=== PATIENT | female | born 1990 | race Caucasian/White ===

== ENCOUNTER 2022-09-02 19:01 | Outpatient (CLI) | payer BC, SELFPAY ==
--- NOTE | 2022-09-02 19:00 | DI.RAD_ITS ---
Exam(s) XR KNEE RT 4V AP,LAT,COLBY,PAT EXAM: XR KNEE RT 4V AP,LAT,COLBY,PAT CLINICAL HISTORY: evaluate pathology ? patella fx. TECHNIQUE: 2D digital imaging was performed of the right knee. Four views obtained. Merchant, AP, la teral and PA tunnel views were obtained. COMPARISON: No exams were available for comparison FINDINGS: BONES: No acute fracture is present. No bony destructive lesion is seen. There is a small enthesophyt e at the superior patella. JOINTS: The knee is normally aligned. No joint effusion is seen. SOFT TISSUE: There is mild soft tissue swelling anterior to the patella and patellar ligament. IMPRESSION: 1. No acute fracture or dislocation. 2. Soft tissue swelling anterior to the knee. DATA REPOSITORY: RADIATION DOSE DELIVERED:
--- NOTE | 2022-09-02 19:59 | DI.VRAD_ITS ---
PROCEDURE INFORMATION: Exam: XR Right Knee Exam date and time: 09/02/2022 7:09 PM Age: 32 years old Clinical indication: Injury or trauma; Blunt trauma; Knee; Right; Injury date: 09/02/22; Injury details: Fall, evaluate pathology ? patella FX TECHNIQUE: Imaging protocol: Radiologic exam of the Left knee. Views: 4 or more views. COMPARISON: No relevant prior studies available. FINDINGS: Bones/joints: Osseous mineralization is normal. There are no inflammatory osseous erosive changes.The joint spaces are maintained without degenerative changes. There are no acute displaced fractures or subluxations. There is a tiny superior patellar enthesophyte. There is no evidence of a joint effusion. Soft tissues: Findings suggest mild soft tissue swelling anterior to the patella and patellar tendon. IMPRESSION: 1. No acute displaced fractures or subluxations of the right knee are identified. 2. Mild soft tissue swelling anterior to the patella, likely posttraumatic. Dictated and Authenticated by: Biju Pearl MD. Ordering:RHINA Kenney MD
== END 2022-09-02 19:21 ==
PROVIDERS: Visit Provider Nurse Practitioner Family
DX: M25.561 Pain in right knee (principal); R22.41 Localized swelling, mass and lump, right lower limb
CPT/HCPCS: 73564

== ENCOUNTER 2022-12-17 03:11 | Outpatient (CLI) | payer BC, SELFPAY ==
[2022-12-17 12:24] LABS: HCT 39.4 % (36.0-46.0); MCH 29.7 pg (27.0-33.0); MCV 90 fL (80-95); MPV 10.2 fL (8.0-11.0); Platelet Count 278 10^3/uL (130-400); RBC 4.37 10^6/uL (3.93-5.22); RDW 12.7 % (11.7-14.6); RDW-SD 42.3 fL; WBC 4.55 10^3/uL (4.4-10.8)
[2022-12-17 12:52] LABS: Total Iron Binding Capacity 325 ug/dL (250-450)
[2022-12-17 12:57] LABS: TSH (W/Ref FT4) 2.28 uIU/mL (0.36-3.74)
[2022-12-17 13:11] LABS: Vitamin D 25 Total 39.2 ng/mL (30-100)
[2022-12-22 11:44] LABS: Testosterone, Total 39 ng/dL (8-60)
== END 2022-12-17 03:12 | disposition home or self-care (01) ==
LOC: LOS 03:11
PROVIDERS: PCP Nurse Practitioner Family; Visit Provider Nurse Practitioner Family
DX: R53.83 Other fatigue (principal); F43.23 Adjustment disorder with mixed anxiety and depressed mood; N92.6 Irregular menstruation, unspecified; Z79.899 Other long term (current) drug therapy
CPT/HCPCS: 36415; 82306; 84403; 85027; 83550; 84443

== ENCOUNTER 2023-04-08 19:09 | Outpatient (REF) | payer BC, SELFPAY ==
--- NOTE | 2023-04-08 19:00 | PAPFT_PTH ---
PATIENT: Deepa Velez LOC: [facility] U#:[id number] AGE/SX: 32/F ROOM: RE04/08/[address]: Luke Rose DNP : 1990 BED: DIS: 04/08/2023 SPEC #: [id number] RECD: 04/09/23 13:06 STATUS: SUKUMAR RELinh #: [id number] MARIA G: 04/08/23 19:[address]: Luke Harper DEPT: [facility] Cytology RECD BY: Bekah Garces Tissues: 1 - CX/ENDOCX FOR PAP SMEARS Procedures: PAP THIN PREP/[facility] Screening HPV DNA PROBE Comments: [id number]
== END 2023-04-08 19:10 | disposition home or self-care (01) ==
LOC: LBN 19:09
PROVIDERS: PCP Nurse Practitioner Family; Visit Provider Nurse Practitioner Family
DX: Z12.4 Encounter for screening for malignant neoplasm of cervix (principal); Z11.51 Encounter for screening for human papillomavirus (HPV)
CPT/HCPCS: 88142; 87624

== ENCOUNTER → 2023-07-30 14:17 | Outpatient (CLI) | payer BC, SELFPAY ==
--- NOTE | 2023-07-30 12:00 | DI.CT_ITS ---
Exam(s) CT ABDOMEN PELVIS W EXAM: CT ABDOMEN PELVIS W CLINICAL HISTORY: low abd pain,r10.30. TECHNIQUE: Imaging Protocol: Axial computed tomography images with coronal and sagittal reformatted images were created and reviewed CONTRAST MATERIAL: Intravenous: Omnipaque-350 100cc Oral: Yes. Oral contrast was also administered for bowel opacification. COMPARISON: No exams were available for comparison FINDINGS: VISUALIZED LUNG BASES: No nodules nor pleural effusions evident. ABDOMEN: There is no ascites. LIVER: There are no focal hepatic lesions evident. No dilated intrahepatic ducts. GALLBLADDER/BILIARY: No obvious gallbladder pathology. CBD is not dilated. PANCREAS: No evidence of pancreatic mass nor dilatation of the pancreatic duct. SPLEEN: Spleen is not enlarged. No obvious intrasplenic lesions. Splenic and portal veins are paten t. ADRENALS: There are no significant adrenal masses. KIDNEYS:No cysts evident. No solid renal masses. No calculi nor hydronephrosis.. ABDOMINAL AORTA: Abdominal aorta is not enlarged. LYMPH NODES:There is no retroperitoneal nor paraaortic adenopathy. ABDOMINAL WALL: No evidence of significant anterior abdominal wall nor inguinal hernia. GI: There is abundant fecal material noted throughout most of the colon with the exception of the sig moid and rectum. The oral contrast has not yet reached the colon most probably related to the consti pation here. There is, however, no evidence of obvious small bowel obstruction. The ileocecal valve and appendix are difficult to identify a here but there is no evidence of obvious appendicitis. PELVIS: GI: No evidence of appendicitis.No evidence of sigmoid diverticulitis. LYMPH NODES: There is no intrapelvic nor inguinal adenopathy. REPRODUCTIVE: Uterus is retroverted. No fibroids evident. Endometrial thickness is age-appropriate. . There are no significant adnexal findings on the right side. There is a peripherally enhancing co rpus luteal cyst in the left ovary which measures 2.2 by 1.5 by 1.7 cm. There is no fluid in the lef t adnexa surrounding the ovary nor in the cul-de-sac. URINARY BLADDER: There is mild thickening of the urinary bladder wall which may indicate cystitis. T here are no masses nor radiopaque calculi evident within the bladder lumen. OSSEOUS: No fractures and no significant osseous lesions. IMPRESSION: 1. There is a 22 x 15 x 17 mm peripherally enhancing corpus luteal cyst in the left ovary. There is no surrounding fluid in left adnexa nor in the cul-de-sac. Right adnexa unremarkable. 2. The appendix is difficult to identify is separate structure but there is no evidence of obvious ap pendicitis nor diverticulitis. 3. There is abundant fecal material throughout the colon consistent with constipation. There is no e vidence of small-bowel obstruction, free air, nor abscess. 4. Relatively uniform thickening of the urinary bladder wall is noted which is either related to cyst itis or under distension. There are no radiopaque calculi nor masses evident within the bladder lume n. The kidneys enhance uniformly with no evidence to suggest pyelonephritis. RADIATION DOSE DELIVERED: Total DLP DATA REPOSITORY: All CT scans at this facility are submitted to the National Radiology Data Registry (NRDR) Dose Index Registry (DIR) with the [employer] ([employer]). RADIATION OPTIMIZATION: All CT scans at this facility use at least one of these dose optimization te chniques: automated exposure control; mA and/or kV adjustment per patient size (includes targeted exa ms where dose is matched to clinical indication); or iterative reconstruction.
[2023-07-30] MEDS: Barium Sulfate 2% W/V-Creamy Vanilla Smoothie 450 ML BTL 900 ML PO (12:57)
[2023-07-30] MEDS: Omnipaque 350 MG/ML 100 ML BTL IJ (15:18)
[2023-07-30] MEDS: Normal Saline Flush 10 ML SYR IVP (15:19)
== END ==
PROVIDERS: PCP Nurse Practitioner Family; Visit Provider Nurse Practitioner Family
DX: N83.202 Unspecified ovarian cyst, left side (principal); K59.00 Constipation, unspecified; R10.9 Unspecified abdominal pain
CPT/HCPCS: 74177; J3490

== ENCOUNTER 2023-07-30 18:47 | Outpatient (REF) | payer BC, SELFPAY ==
[2023-07-30 12:15] LABS: Bilirubin Negative (Negative); Blood Negative (Negative); Clarity Clear (Clear); Glucose Negative (Negative); Ketones Negative (Negative); Leukocyte Esterase Negative (Negative); Nitrite Negative (Negative); Urobilinogen 0.2 mg/dL (Up to 0.2)
[2023-07-30 12:57] LABS: Abs Immature Grans 0.02 10^3/uL (0.0-0.06); Absolute Basophil Count 0.04 10^3/uL (0.0-0.2); Absolute Eosinophil Count 0.05 10^3/uL (0.0-0.7); Absolute Lymphocyte Count 2.12 10^3/uL (1.2-3.4); Absolute Monocyte Count 0.35 10^3/uL (0.1-0.8); Basophils % 0.6; Eosinophils % 0.7; HCT 40.2 % (36.0-46.0); HGB 13.4 g/dL (11.2-15.7); Immature Grans % 0.3; Lymphocytes % 30.8; MCH 28.8 pg (27.0-33.0); MCHC 33.3 % (32.0-36.0); MCV 86 fL (80-95); MPV 9.9 fL (8.0-11.0); Monocytes % 5.1; Neutrophils % 62.5; Platelet Count 319 10^3/uL (130-400); RBC 4.66 10^6/uL (3.93-5.22); RDW 12.5 % (11.7-14.6); RDW-SD 39.8 fL; WBC 6.88 10^3/uL (4.4-10.8)
[2023-07-30 13:25] LABS: ALT 25 U/L (14-59); AST 43 U/L (15-37); Alkaline Phosphatase 78 U/L (46-116); Amylase 49 U/L (25-115); Anion Gap 8.9 mmol/L (3-11); BUN 13 mg/dL (7-18); Bilirubin, Total 0.4 mg/dL (0.2-1.0); CO2 28.1 mmol/L (21.0-32.0); CREATININE 0.9 mg/dL (0.55-1.02); Calcium 9.3 mg/dL (8.5-10.1); Chloride 105 mmol/L (98-107); Estimated GFR 87.11 (mL/min/1.73m2); Glucose 107 mg/dL (74-106); Lipase 43 U/L (16-77); Potassium 3.8 mmol/L (3.5-5.1); Sodium 142 mmol/L (136-145); Total Protein 7.7 g/dL (6.4-8.2)
[2023-07-31 13:13] LABS: Chlamydia Result Negative (Negative); GC Result Negative (Negative)
== END 2023-07-30 18:48 | disposition home or self-care (01) ==
LOC: LBN 18:47
PROVIDERS: PCP Nurse Practitioner Family; Visit Provider Nurse Practitioner Family
DX: R10.30 Lower abdominal pain, unspecified (principal); N91.2 Amenorrhea, unspecified; R30.0 Dysuria; R53.83 Other fatigue; R79.89 Other specified abnormal findings of blood chemistry; R19.8 Other specified symptoms and signs involving the digestive system and abdomen
CPT/HCPCS: 80053; 83690; 87491; 87591; 81003; 82150; 85025; 87480; 87510; 87660

== ENCOUNTER → 2023-08-08 15:05 | Outpatient (CLI) | payer BC, SELFPAY ==
--- NOTE | 2023-08-08 15:41 | DI.RAD_ITS ---
Exam(s) XR CHEST 2V PA LATERAL EXAM: XR CHEST 2V PA LATERAL CLINICAL HISTORY: cough, r/o pneumonia R05.9 COUGH TECHNIQUE: 2D digital imaging was performed. COMPARISON: No exams were available for comparison FINDINGS: HEART: Normal size. Aorta: Not dilated. PULMONARY VASCULATURE: Normal. LUNGS: Patchy infiltrate in the right middle lobe consistent with pneumonia. Remainder of the lung f ields clear. PLEURAL SPACE: No pleural effusion or pneumothorax. BONE:Unremarkable for age. Soft tissues: Unremarkable. IMPRESSION: Right middle lobe pneumonia. DATA REPOSITORY: RADIATION DOSE DELIVERED:
== END ==
PROVIDERS: PCP Nurse Practitioner Family; Visit Provider Physician Assistant
DX: R05.9 Cough, unspecified (principal); J18.9 Pneumonia, unspecified organism
CPT/HCPCS: 71046